=== PATIENT | female | born 1945 | race Two or more races ===

== ENCOUNTER 2018-05-19 12:10 | Emergency (ER) | payer MEDICARE, SELFPAY ==
[2018-05-19 12:11] VITALS: BP 132/67; PULSE 63; RESP 18; TEMP 36.6; O2SAT 98; BMI 17.9
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
== END 2018-05-19 13:14 | disposition home or self-care (01) ==
PROVIDERS: Emergency Provider Emergency Medicine
DX: S70.01XA Contusion of right hip, initial encounter (principal); V03.10XA Pedestrian on foot injured in collision with car, pick-up truck or van in traffic accident, initial encounter; Y93.89 Activity, other specified; Y92.410 Unspecified street and highway as the place of occurrence of the external cause; I25.10 Atherosclerotic heart disease of native coronary artery without angina pectoris; I10 Essential (primary) hypertension; E11.9 Type 2 diabetes mellitus without complications; Z79.84 Long term (current) use of oral hypoglycemic drugs; Z79.899 Other long term (current) drug therapy
CPT/HCPCS: 73502; 99282; J7030

== ENCOUNTER 2018-06-04 17:24 | Emergency (ER) | payer MEDICARE, SELFPAY ==
[2018-06-04 17:25] VITALS: BP 125/85; PULSE 83; RESP 14; TEMP 36.4; O2SAT 96; BMI 18.1
--- NOTE | 2018-06-04 17:55 | CT_ITS ---
STUDY: CT BRAIN WITHOUT CONTRAST REASON FOR EXAM: Female, 72 years old. Fall with head injury RADIATION DOSAGE (If Supplied By Facility): CTDIvol = ( 44.99 ) mGy, DLP = ( 1609.59 ) mGycm TECHNIQUE: Transaxial CT imaging of the brain was performed without administration of intravenous contrast material. Individualized dose optimization techniques were used for this CT. COMPARISON: None. FINDINGS: Normal soft tissue structures. Normal calvarium. There is mild cerebral atrophy with widening of the extra-axial spaces and ventricular dilatation. There are areas of decreased attenuation within the white matter tracts of the supratentorial brain, consistent with microvascular disease changes. Normal basal ganglia and thalami. Normal brainstem. There is mild cerebellar atrophy. There is no intracranial hemorrhage. There are no findings of an acute ischemic infarction. There is mucoperiosteal inflammatory disease of the paranasal sinuses consistent with mild chronic sinusitis. CT/Brain/Head without Contrast IMPRESSION: Chronic involutional changes of the brain. Electronically Signed: Jeff Genao DO at 18:31 EST Tel , Service support ,
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
--- NOTE | 2018-06-04 18:51 | ED.DEP ---
ED Disposition - Plan for ED Patient: Disposition: Home or Assisted Living Chief Complaint: Head Injury Instructions: ED Head Injury Closed Referrals: [facility],Out of [Primary Care Provider] - 1 Week
[2018-06-04 18:59] VITALS: BP 113/67; PULSE 54; RESP 16; O2SAT 99
== END 2018-06-04 19:00 | disposition home or self-care (01) ==
PROVIDERS: Emergency Provider Emergency Medicine
DX: S00.83XA Contusion of other part of head, initial encounter (principal); W18.39XA Other fall on same level, initial encounter; Y93.01 Activity, walking, marching and hiking; I25.10 Atherosclerotic heart disease of native coronary artery without angina pectoris; I10 Essential (primary) hypertension; E11.9 Type 2 diabetes mellitus without complications; Z79.84 Long term (current) use of oral hypoglycemic drugs; Z79.899 Other long term (current) drug therapy
CPT/HCPCS: 70450; 99282

== ENCOUNTER → 2018-10-19 11:43 | Outpatient (CLI) | payer MEDICARE, SELFPAY ==
[2018-10-19 11:30] VITALS: BMI 18.1
--- NOTE | 2018-10-19 11:45 | RAD_ITS ---
STUDY: X-RAY - RIGHT HAND REASON FOR EXAM: Pain and deformity of the fifth digit, fall. TECHNIQUE: 3 view(s) of the hand. COMPARISON: None. FINDINGS: There is osteopenia. Normal radiocarpal articulation. Normal distal radioulnar joint. Normal visualized carpal bones. Normal carpal articulations Normal carpometacarpal articulation of the thumb. Normal second through fifth carpometacarpal joints. Normal metacarpi. Normal metacarpophalangeal joint of the thumb. There is moderate joint space narrowing of the interphalangeal joint of the thumb. Normal proximal and distal phalanges of the thumb. Normal metacarpophalangeal joints of the second through fifth fingers. Normal proximal and distal interphalangeal joints of the second through fifth fingers. There is a mildly comminuted fracture of the proximal diametaphysis of the fifth proximal phalanx with dorsal angulation of the distal fragment. There is soft tissue swelling of the fifth digit. RAD/Hand Min 3 Views IMPRESSION: Fifth proximal phalangeal fracture. Electronically Signed: Devon Goss MD at 12:21 EDT Tel , Service support ,
== END ==
PROVIDERS: Referring Provider Physician Assistant; Visit Provider Physician Assistant
DX: S69.91XA Unspecified injury of right wrist, hand and finger(s), initial encounter (principal)
CPT/HCPCS: 73130

== ENCOUNTER 2018-10-19 13:02 | Inpatient (IN) | payer MEDICARE, SELFPAY ==
[2018-10-19] VITALS (9 sets, daily range): BP systolic 105–142; BP diastolic 63–81; PULSE 67–83; RESP 16–24; TEMP 36.7–36.8; O2SAT 98–100; BMI 18.1; BMI 18.2; BMI 17.9
--- NOTE | 2018-10-19 13:27 | EKG12_ITS ---
Test Reason : ADMISSION Blood Pressure : / mmHG Vent. Rate : 071 BPM Atrial Rate : 071 BPM P-R Int : 144 ms QRS Dur : 084 ms QT Int : 386 ms P-R-T Axes : 073 026 053 degrees QTc Int : 419 ms Normal sinus rhythm Normal ECG No previous ECGs available Confirmed by FRANCE NIELSON, MARK ([id number]), video editor CARMEN PATTERSON ([id number]) on 10/25/2018 12:08:23 PM Referred By: Charles Baker Confirmed By:MARK HOUGH MD
[2018-10-19] MEDS: 0.9% Normal Saline 1,000 ML 150 ML IV (13:56)
[2018-10-19 13:57] LABS: Absolute Lymphocyte Count 2.01 X10^3/ul (0.83-4.51); Absolute Neutrophil Count 5.2 X10^3/uL (2.0-7.7); Basophil# 0.02 X10^3/uL; Basophil% 0.3 % (0-1); Eosinophil# 0.04 X10^3/uL; Eosinophils% 0.5 % (0-5); Hematocrit 33.4 % (37-47); Hemoglobin 11.5 g/dl (12.0-15.0); Lymphocyte # 2.01 X10^3/ul (4.0); Lymphocyte % 25.2 % (19-41); Mean Corp Hgb Conc 34.4 g/gl (32-36); Mean Corpuscular Hgb 29.9 pg (27.0-32.0); Mean Platelet Vol. 8.8 fl (6.2-12.0); Monocyte# 0.71 X10^3/uL; Monocyte% 8.9 % (0-10); Neutrophil % 65.1 % (47-70); Platelet Count 276 K/mm3 (150-450); RBC Distribution Width CV 13.6 % (11.6-14.6); RBC Distribution Width SD 43.8 fl (35.1-43.9); Red Blood Count 3.84 M/mm3 (4.2-5.4)
[2018-10-19 13:58] LABS: POSITIVE COUNT NO; POSITIVE DIFFERENTIAL NO; POSITIVE MORPHOLOGY NO
[2018-10-19 14:13] LABS: Anion Gap 4 (5-15); BUN 10 mg/dL (7-18); BUN/Creat Ratio 17.9 RATIO (10-20); Calcium,Total 8.9 mg/dL (8.5-10.1); Chloride 103 mmol/L (98-107); Creatinine, Serum 0.56 mg/dL (0.55-1.02); EST Glomerular Filtration Rate 113 mL/min (>60); Est Glom Filt Rate - Afr Amer 137 mL/min (>60); Estimated Creatinine Clearance 35.08 ml/min; Glucose 94 mg/dL (74-106); Potassium 3.8 mmol/L (3.5-5.1); Sodium Level 134 mmol/L (136-145)
[2018-10-19] MEDS: Aspirin 81 MG TAB.CHEW 324 MG PO (15:10)
--- NOTE | 2018-10-19 15:20 | RAD_ITS ---
STUDY: X-RAY CHEST REASON FOR EXAM: Female, 73 years old. Abnormal EKG. TECHNIQUE: Single AP portable view of the chest. COMPARISON: None. FINDINGS: EKG electrodes are seen. Hyperinflation. The lungs are clear. There is no demonstrated pleural abnormality. Normal size heart. Normal mediastinum and dmitriy. Normal visualized pulmonary arteries. There is atherosclerotic calcification of the aortic arch with tortuosity. Normal visualized thoracic spine. Normal visualized ribs, clavicles, and shoulders. There is no demonstrated abnormality of the visualized soft tissue structures of the upper abdomen. RAD/Chest 1 View (Portable) IMPRESSION: Hyperinflation. The lungs are clear. Electronically Signed: Srinivasa Reddy, at 15:39 EDT , Service support ,
--- NOTE | 2018-10-19 16:25 | ED.VISSUMM ---
- ER Visit Summary Date of Service: 10/19/18 Chief Complaint: Fall History of Present Illness: The patient is a 73 F who sent to the ER from the [facility] clinic after falling. She states she tripped and fell. She has a right fifth finger fracture. She reported was sent to the ER to check out my heart. Patient is on metoprolol regularly. She denies chest pain or palpitations. She states she catches her toe and falls fairly frequently. She was seen here in May for a fall also. Patient lives in [place] but is here visiting her mother. 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 Her last cardiac cath was 2 years ago and did not show any lesions that would require stenting. Physical Examination: Vital signs unremarkable. Patient sitting upright in bed no acute distress. Head neck examination was an abrasion to the right lateral eyebrow. C-spine is nontender. Heart is irregular. Lung sounds are clear. Abdomen is soft nontender. Right upper extremity reveals right fifth finger to be in a splint. She has abrasions noted to her left palm. Test Results: EKG is sinus at 70 with frequent PACs. On review of cloud automation tester she is in a trigeminy type pattern with 2 sinus beats followed by a PAC. CBC was normal white count hemoglobin 11.5. Chemistry studies normal. Troponin is elevated at 0.088. Portable chest x-ray shows hyperinflation. Lungs are clear. Emergency Department Course and Treatment: Patient was given IV fluids. Following laboratory results she was given p.o. aspirin. As advised by nursing staff that the splint was applied to her hand at urgent care was only a temporary measure and we needed to redo it here. I pulled [facility] and her finger is angulated. Digital block is performed. Right fifth finger is reduced and placed in AlumaFoam splint. I discussed with patient need for hospitalization and cycling of cardiac enzymes and monitoring for any cardiac arrhythmias. At this time she is declining but is in agreement to stay for a 3-hour repeat EKG and troponin. Depending on those results she will consider staying in the hospital. Is to be signed out to oncoming physician. Treatment Plan: [] Disposition: Pending repeat labs Impression: 1. Right fifth finger fracture, reduced 2. Elevated troponin 3. Fall This note was generated with [employer] software. It may contain incorrect words, spelling, and punctuation that were not noted in review of the chart prior to signing ED Disposition - Plan for ED Patient: Referrals: [facility],Out of [Primary Care Provider] -
--- NOTE | 2018-10-19 16:29 | ED.DCSUM_ITS ---
- ER Visit Summary Date of Service: 10/19/18 Chief Complaint: Fall History of Present Illness: The patient is a 73 F who sent to the ER from [facility]. She states she tripped and fell. She has a right fifth finger fracture. She reported was sent to the ER to check out my heart. Patient is on metoprolol regularly. She denies chest pain or palpitations. She states she catches her toe and falls fairly frequently. She was seen here in May for a fall also. Patient lives in [place] but is here visiting her mother. 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 Her last cardiac cath was 2 years ago and did not show any lesions that would require stenting. Physical Examination: Vital signs unremarkable. Patient sitting upright in bed no acute distress. Head neck examination was an abrasion to the right lateral eyebrow. C-spine is nontender. Heart is irregular. Lung sounds are clear. Abdomen is soft nontender. Right upper extremity reveals right fifth finger to be in a splint. She has abrasions noted to her left palm. Test Results: EKG is sinus at 70 with frequent PACs. On review of pile driver operator helper she is in a trigeminy type pattern with 2 sinus beats followed by a PAC. CBC was normal white count hemoglobin 11.5. Chemistry studies normal. Troponin is elevated at 0.088. Portable chest x-ray shows hyperinflation. Lungs are clear. Emergency Department Course and Treatment: Patient was given IV fluids. Following laboratory results she was given p.o. aspirin. As advised by nursing staff that the splint was applied to her hand at urgent care was only a t emporary measure and we needed to redo it here. I pulled up [facility] and her finger is angulated. Digital block is performed. Right fifth finger is reduced and placed in AlumaFoam splint. I discussed with patient need for hospitalization and cycling of cardiac enzymes and monitoring for any cardiac arrhythmias. At this time she is declining but is in agreement to stay for a 3-hour repeat EKG and troponin. Depending on those results she will consider staying in the hospital. Is to be signed out to oncoming physician. Treatment Plan: [] Disposition: Pending repeat labs Impression: 1. Right fifth finger fracture, reduced 2. Elevated troponin 3. Fall This note was generated with Dragon dictation software. It may contain incorrect words, spelling, and punctuation that were not noted in review of the chart prior to signing ED Disposition - Plan for ED Patient: Referrals: [facility] Doctor,Out of [Primary Care Provider] -
--- NOTE | 2018-10-19 16:30 | RAD_ITS ---
STUDY: X-RAY - RIGHT HAND, ATTENTION FIFTH FINGER REASON FOR EXAM: Female, 73 years old. Post reduction fracture TECHNIQUE: 3 view(s) of the finger were obtained. COMPARISON: Prior study of October 19, 2018 FINDINGS: There is again demonstrated a comminuted fracture of the base and proximal shaft of the fifth proximal phalanx. There remains moderately severe angulation deformity at the fracture site with the fracture apex directed anteriorly. The degree of angulation deformity appears similar to the prereduction images. RAD/Finger(s) Min 2 Views IMPRESSION: Comminuted fracture of the base/proximal shaft of the fifth proximal phalanx, appearing fairly similar in alignment to the prereduction images. Electronically Signed: Augustus Rosa MD at 16:45 EDT , Service support ,
--- NOTE | 2018-10-19 17:00 | EKG12_ITS ---
Test Reason : REPEAT Blood Pressure : / mmHG Vent. Rate : 069 BPM Atrial Rate : 069 BPM P-R Int : 144 ms QRS Dur : 074 ms QT Int : 390 ms P-R-T Axes : 056 029 049 degrees QTc Int : 417 ms Sinus rhythm with Premature atrial complexes Otherwise normal ECG Confirmed by JO ANN LEHMAN ([id number]), editorial specialist AYLA MORA ([id number]) on 10/26/2018 8:48:39 AM Referred By: Charles Baker Confirmed By:JO ANN LEHMAN
--- NOTE | 2018-10-19 18:57 | PCM.HP.STD ---
Problem List (1) Closed fracture of proximal phalanx of right hand Status: Acute (2) Contusion of left hand Status: Acute (3) Contusion of face Status: Acute (4) PAC (premature atrial contraction) Status: Acute (5) DM type 2 (diabetes mellitus, type 2) Status: Chronic (6) HTN (hypertension) Status: Chronic (7) CAD (coronary artery disease) Status: Chronic (8) Chronic iron deficiency anemia Status: Chronic History of Present Illness Date of Admission: 10/19/18 Chief Complaint: Recurrent fall and arrhythmia The patient is a 73 year old F with history of mild coronary artery, diabetes mellitus type 2 and hypertension but no PCI was sent to ER from [facility] after she had a fall and found arrhythmia. Patient has history of frequent fall, about 3 times in last 3 months without dizziness, altered mental status, confusion or palpitation. She suddenly feels her legs could not hold up and fall. She denies syncope or loss of consciousness. In ED, x-ray was done. she was found to have committed fracture of base/proximal shaft of the fifth proximal phalanx. She had a splint put in right fifth finger. She also has bruise on the right periorbital region and right knee secondary to fall. Patient is from [place] and visiting her family here. She follows to Stevan Mata, phone no [phone] at [place], [place]. Patient had a stress test every 2 or 3 years since 2003 and 2 cardiac cath one in 2003 and then 2017 and was told mild coronary artery disease, diffuse in nature but did not require PCI. She has never been diagnosed with arrhythmia or told by the doctor. In ER, EKG shows normal sinus rhythm with PACs and compensatory pause. Serial troponin done here is mildly elevated at 0.088 and 0.111. Chest x-ray shows hyperinflation. Past Medical History Past Medical History (Chronic Problems): Chronic Problems (Last Updated 10/19/18 @ 11:29 by Sheila Marcano) DM type 2 (diabetes mellitus, type 2) (Chronic) HTN (hypertension) (Chronic) CAD (coronary artery disease) (Chronic) Chronic iron deficiency anemia (Chronic) Medical History: Medical History (Last Updated 10/19/18 @ 11:29 by Sheila Marcano) Anemia D64.9 Diabetes E11.9 Difficulty balancing R29.818 GERD (gastroesophageal reflux disease) K21.9 Hay fever J30.1 Heart disease I51.9 SOB (shortness of breath) R06.02 Thyroid disease E07.9 HTN (hypertension) I10 Allergies Penicillins Allergy (Verified 10/19/18 13:06) Unknown Sulfa (Sulfonamide Antibiotics) Allergy (Verified 10/19/18 13:06) Unknown Home Medications: Ambulatory Orders Medication Instructions Recorded Lisinopril [Zestril] 2.5 mg PO DAILY 06/04/18 Metformin(XR) [Glucophage Xr] 1,000 mg PO BID 06/04/18 Atorvastatin Calcium [Lipitor] 10 mg PO DAILY 10/19/18 Ezetimibe [Zetia] 10 mg PO DAILY 10/19/18 levothyroxine 75 mcg tablet 75 mcg PO DAILY 10/19/18 metoprolol succinate ER 25 mg 25 mg PO DAILY 90 Days #90 tab 10/19/18 tablet,extended release 24 hr Smoking Status: Never smoker Tobacco Use: Non-smoker - *Family History Maternal Family History: Family History (Last Updated 10/19/18 @ 11:30 by Sheila Marcano) Other CAD (coronary artery disease) GERD (gastroesophageal reflux disease) Hypertension History Items: Heart Disease - Coronary artery disease with stent Review of Systems Constitutional: Denies: Chills, Fever, Weight Change HEENT: Denies: Head Aches, Sinus Congestion, Sinus Drainage Cardiovascular: Denies: Chest Pain, Palpitations Respiratory: Denies: Cough, Shortness of breath at rest, Sputum production Gastrointestinal: Denies: Abdominal Pain, Nausea, Vomiting Genitourinary: Denies: Dysuria Musculoskeletal: Reports: Foot Pain, Joint Pain. Denies: Joint Tenderness Skin: Denies: Rash, Wounds Neurological: Denies: Numbness, Tingling, Focal weakness Psychiatric: Denies: Anxiety, Depression, Homicidal Ideations, Suicidal Ideations Hematologic/ Lymphatic: Denies: Easy Bruising, Easy Bleeding VTE Information - Inpt Only VTE Present on Admission: No VTE Mechan Device Prophylaxis: None VTE Pharm Prophylaxis ordered?: Yes - Physical Exam General: Alert, Oriented x3, Cooperative HEENT: Atraumatic, PERRLA, EOMI, Normocephalic Neck: Supple, No JVD, Negative Carotid Bruits Lungs: Clear to auscultation, Normal air movement, No rhonchi, No wheeze, No rales Cardiovascular: Regular rate, Normal S1, Normal S2, No murmurs, Irregular Rate Abdomen: Bowel Sounds Present, Soft, Non Tender, Non-Distended Extremities: No edema, Capillary Refill Less than 3 Seconds Skin: No rashes, No breakdown Musculoskeletal: No Tenderness to Palpation of Joints or Extremities, Arthritic Changes, Tenderness - Tenderness over right fifth Neurological: Cranial nerves II-XII grossly intact Psych/Mental Status: Normal Affect, Appropriate Vital Signs Temp Pulse Resp BP Pulse Ox 98.3 F 68 18 142/81 H 100 10/19/18 13:02 10/19/18 17:58 10/19/18 17:58 10/19/18 17:58 10/19/18 17:58 Oxygen Delivery Method Room Air Weight: 96 lb 5.472 oz Body Mass Index (BMI) 18.1 Laboratory Tests Past 24 Hrs 10/19/18 10/19/18 10/19/18 13:49 13:49 17:15 WBC 8.0 RBC 3.84 L Hgb 11.5 L Hct 33.4 L MCV 87.0 MCH 29.9 MCHC 34.4 RDW 13.6 RDW Differential 43.8 Plt Count 276 MPV 8.8 Immature Gran % (Auto) 0.000 Neut % (Auto) 65.1 Lymph % (Auto) 25.2 Hemphill % (Auto) 8.9 Eos % (Auto) 0.5 Baso % (Auto) 0.3 Absolute Neuts (auto) 5.2 Absolute Lymphs (auto) 2.01 Total Counted Not Reportable Sodium 134 L Potassium 3.8 Chloride 103 Carbon Dioxide 27.0 Anion Gap 4 L BUN 10 Creatinine 0.56 Estim Creat Clear Calc 35.08 Est GFR (MDRD) Af Amer 137 Est GFR (MDRD) Non-Af 113 BUN/Creatinine Ratio 17.9 Glucose 94 Calcium 8.9 Troponin I 0.088 H 0.111 H Assessment/Plan All Active Problems (Last Updated 10/19/18 @ 11:29 by Sheila Marcano) Closed fracture of proximal phalanx of right hand (Acute) Contusion of left hand (Acute) Contusion of face (Acute) PAC (premature atrial contraction) (Acute) The patient is a 73 year old F with history of mild coronary artery, diabetes mellitus type 2 and hypertension but no PCI was sent to ER from [facility] after she had a fall and found arrhythmia. Patient has history of frequent fall, about 3 times in last 3 months without dizziness, altered mental status, confusion or palpitation. She suddenly feels her legs could not hold up and fall. She denies syncope or loss of consciousness. In ED, x-ray was done. she was found to have committed fracture of base/proximal shaft of the fifth proximal phalanx. She had a splint put in right fifth finger. She also has bruise on the right periorbital region and right knee secondary to fall. Patient is from [place] and visiting her family here. She follows to Stevan Mata, phone no [phone] at [place], [place]. Patient had a stress test every 2 or 3 years since 2003 and 2 cardiac cath one in 2003 and then 2017 and was told mild coronary artery disease, diffuse in nature but did not require PCI. She has never been diagnosed with arrhythmia or told by the doctor. In ER, EKG shows normal sinus rhythm with PACs and compensatory pause. Serial troponin done here is mildly elevated at 0.088 and 0.111. Chest x-ray shows hyperinflation. 1. Recurrent fall with arrhythmia: The arrhythmia is new onset with PACs and compensatory pause. Patient is being admitted in PCU. Serial troponin enzymes. 2D echo tomorrow morning. We will try to get medical record from Dr. Stevan Mata her offset lithographic press setter. Fruit Grading Supervisor consult for further opinion. Patient might need event monitor for further evaluation of arrhythmia which might be related to fall. She denies any history of severe arthritis, musculoskeletal problems leading to fall. Check electrolytes magnesium. 2. Right fifth finger proximal shaft corrected fracture: We will consult orthopedic surgeon. Motrin small dose 400 mg every 8 hourly for anti-inflammatory effect. Pain control. 3. Coronary artery disease with elevated troponins: Cycle troponins. Home medications continued including lisinopril, metoprolol and aspirin. Patient does not have chest pain. Seems her troponin leaks may be related to arrhythmia or fall. She had multiple stress and cardiac cath in [place]. 4. Diabetes mellitus type 2: Blood sugar is well controlled, glucose 94 in BMP. Hold metformin. Accu-Cheks are seen just cover with Humalog sliding scale. 5. Hypertension: Blood pressure is controlled. Continue lisinopril. 6. Other comorbidities include GERD, mild chronic iron deficiency anemia: Patient last hemoglobin was 12 g% as an outpatient. Currently 11.5/33 2.4. 7. DVT plexus: Lovenox 40 minutes subcu daily. Laboratory Results 10/19/18 13:49: WBC 8.0, RBC 3.84 L, Hgb 11.5 L, Hct 33.4 L, MCV 87.0, MCH 29.9, MCHC 34.4, RDW 13.6, RDW Differential 43.8, Plt Count 276, MPV 8.8, Immature Gran % (Auto) 0.000, Neut % (Auto) 65.1, Lymph % (Auto) 25.2, Hemphill % (Auto) 8.9, Eos % (Auto) 0.5, Baso % (Auto) 0.3, Absolute Neuts (auto) 5.2, Absolute Lymphs (auto) 2.01, Total Counted Not Reportable 10/19/18 13:49: Sodium 134 L, Potassium 3.8, Chloride 103, Carbon Dioxide 27.0, Anion Gap 4 L, BUN 10, Creatinine 0.56, Estim Creat Clear Calc 35.08, Est GFR (MDRD) Af Amer 137, Est GFR (MDRD) Non-Af 113, BUN/Creatinine Ratio 17.9, Glucose 94, Calcium 8.9, Troponin I 0.088 H 10/19/18 17:15: Troponin I 0.111 H 10/19/18 17:15: Magnesium Pending 10/19/18 17:15: Magnesium Pending Clinical Impression(s) from Imaging Studies Chest X-Ray 10/19/18 15:20 IMPRESSION: Hyperinflation. The lungs are clear. Finger X-Ray 10/19/18 16:30 IMPRESSION: Comminuted fracture of the base/proximal shaft of the fifth proximal phalanx, appearing fairly similar in alignment to the prereduction images. Code Visit OBSV E&M: [id number] Initial observation care L3
--- NOTE | 2018-10-19 19:08 | EKG12_ITS ---
Test Reason : FALL Blood Pressure : / mmHG Vent. Rate : 070 BPM Atrial Rate : 070 BPM P-R Int : 132 ms QRS Dur : 076 ms QT Int : 384 ms P-R-T Axes : 062 036 058 degrees QTc Int : 414 ms Sinus rhythm with Premature atrial complexes Otherwise normal ECG Confirmed by JO ANN LEHMAN ([id number]), editor continuity and script AYLA MORA ([id number]) on 10/26/2018 8:49:28 AM Referred By: Charles Baker Confirmed By:JO ANN LEHMAN
[2018-10-19 19:21] LABS: Magnesium 1.7 mg/dL (1.6-2.6)
[2018-10-19 19:31] LABS: Bedside Glucose 92 mg/dL (70-110)
--- NOTE | 2018-10-19 19:36 | CT_ITS ---
STUDY: CT LUMBAR SPINE WITHOUT CONTRAST REASON FOR EXAM: Female, 73 years old. RIGHT leg pain RADIATION DOSAGE (If Supplied By Facility): CTDIvol = ( 10.07 ) mGy, DLP = ( 274.91 ) mGycm TECHNIQUE: The patient was scanned in a multi detector CT scanner. High resolution transaxial imaging was performed. Images were obtained from to . Sagittal and coronal images were reconstructed. Individualized dose optimization techniques were used for this CT. COMPARISON: None FINDINGS: Normal lumbar lordosis. There is no substantial scoliosis. Normal vertebrae of the lumbar spine. L1-2: Normal endplates. Normal disc height and morphology. Normal bilateral facet joints. Normal central canal and bilateral lateral recesses. Normal bilateral intervertebral neural foramina. L2-3: Normal endplates. Normal disc height and morphology. Normal bilateral facet joints. Normal central canal and bilateral lateral recesses. Normal bilateral intervertebral neural foramina. L3-4: Normal endplates. Normal disc height and morphology. Normal bilateral facet joints. Normal central canal and bilateral lateral recesses. Normal bilateral intervertebral neural foramina. L4-5: Normal endplates. There is mild loss of disc height. There is broad-based disc bulging and bilateral facet hypertrophy. There is mild thickening of the ligamentum flavum. There is mild spinal stenosis and bilateral foraminal stenosis. L5-S1: Normal endplates. Normal disc height and morphology. Normal bilateral facet joints. Normal central canal and bilateral lateral recesses. Normal bilateral intervertebral neural foramina. Normal visualized paraspinous soft tissue structures. CT/Spine Lumbar without Contrast IMPRESSION: There are NO fractures or malalignments. There are degenerative disc and facet changes causing spinal and foraminal stenosis as described at L4-L5. Electronically Signed: Milo Hdez MD at 5:04 EDT , Service support ,
[2018-10-19] MEDS: Ibuprofen 400 MG Tablet PO (21:16)
[2018-10-19] MEDS: Enoxaparin 40 MG/0.4 ML Syringe SC (22:32)
[2018-10-19] MEDS: 0.9% Normal Saline 1,000 ML 100 ML IV (22:42)
[2018-10-19 23:41] LABS: Bedside Glucose 98 mg/dL (70-110)
[2018-10-20] VITALS (11 sets, daily range): BP systolic 83–134; BP diastolic 52–72; PULSE 58–77; RESP 15–18; TEMP 36.4–36.8; O2SAT 97–100
--- NOTE | 2018-10-20 05:55 | ECHOCS_ITS ---
Reason For Study: Fall with arrhythmia Procedure This was a 2D Doppler, Color Flow transthoracic echocardiogram. The study was technically difficult. Contrast injection was performed. Exam performed in department. Left Ventricle Normal size and thickness. The estimated ejection fraction is 65 %. Stage 1 diastolic dysfunction. No regional wall motion abnormalities noted. Right Ventricle Normal size and thickness. Normal systolic function. Atria Normal left atrium. Normal right atrium. Normal atrial septum. Bubble contrast study negative for right to left interatrial shunt. Mitral Valve The mitral valve is structurally normal. No prolapse or stenosis seen. Tricuspid Valve Normal tricuspid valve. Trivial tricuspid valve insufficiency. Right ventricular systolic pressure estimated to be 33 mmHg. Aortic Valve Trisinus/trileaflet aortic valve. Mild diffuse aortic valve thickening. Trivial aortic valve insufficiency. Pulmonic Valve Normal pulmonic valve. Great Vessels Normal aortic root. Normal arch. Normal inferior vena cava. Inferior vena cava collapse with sniff. Pericardium/Pleural No pericardial effusion. Medication Diluted definity 1ml given slow IV push to enhance endocardial definition. Performed a rapid injection of agitated mix of 9 cc saline and 1cc air to assess for atrial septal defect. MMode/2D Measurements & Calculations LVIDd: 3.2 cm IVSd: 1.0 cm LA dimension: 2.7 cm LVIDs: 1.9 cm LVPWd: 1.1 cm RVDd: 2.5 cm FS: 42.3 % LAV(MOD-bp): 28.1 ml LA A4 area: 12.9 cm2 RA A4 area: 10.7 cm2 LAV(MOD-bp) Indexed: 20.4 ml/m2 LAV(MOD-sp2): 28.0 ml LAV(MOD-sp4): 27.6 ml Time Measurements MV dec time: 0.21 sec Doppler Measurements & Calculations MV E max abdelrahman: 83.7 cm/sec Lat Peak E' Abdelrahman: 6.6 cm/sec Med Peak E' Abdelrahman: 8.3 cm/sec MV A max abdelrahman: 93.2 cm/sec E/E' lat: 12.7 E/E' med: 10.1 MV E/A: 0.90 MV V2 max: 97.4 cm/sec MV P1/2t max abdelrahman: 86.8 cm/sec Ao V2 max: 143.5 cm/sec MV max P.8 mmHg MV P1/2t: 64.1 msec Ao max P.2 mmHg MV V2 mean: 56.1 cm/sec MV dec slope: 396.9 cm/sec2 Ao V2 mean: 89.9 cm/sec MV mean P.5 mmHg Ao mean P.8 mmHg MV V2 VTI: 26.1 cm MVA(P1/2t): 3.4 cm2 Ao V2 VTI: 25.0 cm AI max abdelrahman: 382.8 cm/sec LV V1 max: 109.1 cm/sec PA V2 max: 95.3 cm/sec AI max P.6 mmHg LV V1 max P.8 mmHg AI dec slope: 189.4 cm/sec2 LV V1 mean P.7 mmHg AI P1/2t: 592.0 msec LV V1 mean: 59.1 cm/sec LV V1 VTI: 21.7 cm TR max abdelrahman: 263.6 cm/sec TR max P.8 mmHg Interpretation Summary The estimated ejection fraction is 65 %. Stage 1 diastolic dysfunction. Bubble contrast study negative for right to left interatrial shunt. Right ventricular systolic pressure estimated to be 33 mmHg. Trivial tricuspid valve insufficiency. Trivial aortic valve insufficiency. The study was technically difficult. Contrast injection was performed. Ordering Physician: Jermaine Mitchell Performed By: Chilo Fitzgerald RCS
--- NOTE | 2018-10-20 05:55 | EKG12_ITS ---
Test Reason : AM EKG Blood Pressure : / mmHG Vent. Rate : 068 BPM Atrial Rate : 068 BPM P-R Int : 158 ms QRS Dur : 080 ms QT Int : 430 ms P-R-T Axes : 070 016 040 degrees QTc Int : 457 ms Normal sinus rhythm Normal ECG When compared with ECG of 19-OCT-2018 21:01, MANUAL COMPARISON REQUIRED, DATA IS UNCONFIRMED Confirmed by FRANCE NIELSON, MARK ([id number]), book editor CARMEN PATTERSON ([id number]) on 10/25/2018 12:07:10 PM Referred By: DR KEE Confirmed By:MARK HOUGH MD
--- NOTE | 2018-10-20 05:55 | STEWCON_ITS ---
Reason For Study: DYSPNEA/SOB Stress Results Protocol: Jovanni Protocol WITH DEFINITY Maximum Predicted HR: 148 bpm Target HR: 126 bpm % Maximum Predicted HR: 90 % DurationHeart Rate Stage (mm:ss) (bpm) BP Comment BASELINE 65 108/561CC DEFINITY STAGE 1 3:00 101 120/52 STAGE 2 3:00 114 122/52 STAGE 3 3:00 133 120/501 CC DEFINITY RECOVERY 81 110/60 Stress Duration: 9:00 mm:ss Maximum Stress HR: 133 bpm Baseline Echocardiogram Findings The estimated ejection fraction is 65 %. Stress Echo Wall motion Data Resting WM Intermediate WM Stress WM Resting Wall Motion Wall Motion Stress No regional wall motion No regional wall motion abnormalities noted. abnormalities noted. EKG Data The baseline ECG displays normal sinus rhythm. The patient exercised according to the regular Jovanni protocol for a total duration of 9:00. The maximum heart rate attained was 139 beats per minute. This was 93% of maximum predicted heart rate. The patient exercised into stage 4 of the Jovanni protocol. During stress, there were no ST or T wave changes noted to suggest ischemia. No clinical angina was noted. No arrhythmias noted. Interpretation Summary The estimated ejection fraction is 65 %. Normal, adequate, treadmill echocardiogram. Negative for ischemia by EKG and echocardiographic criteria. No anginal symptoms noted. No arrhythmias noted. Appropriate heart rate and blood pressure response to exercise. Excellent chronotropic competence. Decreased sensitivity due to poor echo windows requiring Definity enhancing agent. Final LVEF is 75%. Test terminated due to the attainment target heart rate and dyspnea. No complications. The study was technically difficult. Contrast injection was performed. Ordering Physician: Jermaine Mitchell Performed By: Chilo Fitzgerald RCS
[2018-10-20] MEDS: Aspirin E.C. 81 MG Tablet PO (06:03)
[2018-10-20] MEDS: Lisinopril 2.5 MG Tablet PO (06:07)
[2018-10-20 06:35] LABS: Hematocrit 33.5 % (37-47); Hemoglobin 11.4 g/dl (12.0-15.0); Mean Corpuscular Hgb 29.6 pg (27.0-32.0); Mean Platelet Vol. 9.2 fl (6.2-12.0); Platelet Count 277 K/mm3 (150-450); RBC Distribution Width CV 13.4 % (11.6-14.6); RBC Distribution Width SD 41.4 fl (35.1-43.9); Red Blood Count 3.85 M/mm3 (4.2-5.4); White Blood Count 6.2 K/mm3 (4.4-11.0)
[2018-10-20 06:36] LABS: Scan Indicated on CBC? Y/N NO
[2018-10-20 06:39] LABS: Prothrombin Time (Protime)PT. 13.2 SECONDS (11.7-14.9)
[2018-10-20 06:40] LABS: Partial Thromboplast Time 36.6 Seconds (24.1-36.2)
[2018-10-20 07:19] LABS: Anion Gap 7 (5-15); BUN 13 mg/dL (7-18); BUN/Creat Ratio 27.7 RATIO (10-20); Calcium,Total 8.4 mg/dL (8.5-10.1); Chloride 109 mmol/L (98-107); Cholesterol 139 mg/dL (200); Creatinine, Serum 0.47 mg/dL (0.55-1.02); EST Glomerular Filtration Rate 138 mL/min (>60); Est Glom Filt Rate - Afr Amer 167 mL/min (>60); Estimated Creatinine Clearance 34.63 ml/min; Glucose 88 mg/dL (74-106); High Density Lipoprotein 91 mg/dL; Phosphorus 4.3 mg/dL (2.5-4.9); Potassium 3.9 mmol/L (3.5-5.1); Sodium Level 140 mmol/L (136-145); T4 Free Direct 1.35 ng/dL (0.76-1.46); Thyroid Stim Hormone (TSH) 0.31 uIU/mL (0.358-3.74); Triglycerides 60 mg/dL; Very Low Density Lipoprotein 12 mg/dL (5-40)
[2018-10-20 07:21] LABS: Bedside Glucose 87 mg/dL (70-110)
--- NOTE | 2018-10-20 09:31 | PCM.PN.ORT ---
Subjective: Patient at cardiac testing right now. - Physical Exam Vital Signs Temp Pulse Resp BP Pulse Ox 97.7 F L 63 16 115/59 L 100 10/20/18 08:00 10/20/18 08:00 10/20/18 08:00 10/20/18 08:00 10/20/18 08:00 Oxygen Delivery Method Room Air Weight: 95 lb 1.6 oz Body Mass Index (BMI) 17.9 Orthostatic Vital Signs Start: 10/19/18 20:20 Freq: q24h Status: Active Protocol: Activity Type Activity Date Activity User E-Sign Co-Sign Detail Recorded Client Recorded Date Recorded By Document 10/19/18 20:00 ZACHARIAH [id number] 10/19/18 20:21 ZACHARIAH 10/19/18 20:00 Orthostatic Vitals Standing -Blood Pressure (90/60-120/80) 105/66 -Extremity Use Left Arm -Pulse Rate (60-100) 83 Sitting -Blood Pressure (90/60-120/80) 114/71 -Extremity Use Left Arm -Pulse Rate (60-100) 75 Lying -Blood Pressure (90/60-120/80) 111/63 -Extremity Use Left Arm -Pulse Rate (60-100) 76 Intake and Output for Last 24 Hours 10/18/18 10/19/18 10/20/18 23:59 23:59 23:59 Intake Total 877 / 877 Balance 877 / 877 Laboratory Tests Past 24 Hrs 10/19/18 10/19/18 10/19/18 13:49 13:49 17:15 WBC 8.0 RBC 3.84 L Hgb 11.5 L Hct 33.4 L MCV 87.0 MCH 29.9 MCHC 34.4 RDW 13.6 RDW Differential 43.8 Plt Count 276 MPV 8.8 Immature Gran % (Auto) 0.000 Neut % (Auto) 65.1 Lymph % (Auto) 25.2 Wilkinson % (Auto) 8.9 Eos % (Auto) 0.5 Baso % (Auto) 0.3 Absolute Neuts (auto) 5.2 Absolute Lymphs (auto) 2.01 Total Counted Not Reportable PT INR APTT Sodium 134 L Potassium 3.8 Chloride 103 Carbon Dioxide 27.0 Anion Gap 4 L BUN 10 Creatinine 0.56 Estim Creat Clear Calc 35.08 Est GFR (MDRD) Af Amer 137 Est GFR (MDRD) Non-Af 113 BUN/Creatinine Ratio 17.9 Glucose 94 Calcium 8.9 Phosphorus Magnesium Troponin I 0.088 H 0.111 H Triglycerides Cholesterol LDL Cholesterol VLDL Cholesterol HDL Cholesterol TSH Free T4 10/19/18 10/19/18 10/19/18 17:15 17:15 20:50 WBC RBC Hgb Hct MCV MCH MCHC RDW RDW Differential Plt Count MPV Immature Gran % (Auto) Neut % (Auto) Lymph % (Auto) Wilkinson % (Auto) Eos % (Auto) Baso % (Auto) Absolute Neuts (auto) Absolute Lymphs (auto) Total Counted PT INR APTT Sodium Potassium Chloride Carbon Dioxide Anion Gap BUN Creatinine Estim Creat Clear Calc Est GFR (MDRD) Af Amer Est GFR (MDRD) Non-Af BUN/Creatinine Ratio Glucose Calcium Phosphorus Magnesium Cancelled 1.7 Troponin I 0.093 H Triglycerides Cholesterol LDL Cholesterol VLDL Cholesterol HDL Cholesterol TSH Free T4 10/20/18 10/20/18 10/20/18 06:22 06:22 06:22 WBC 6.2 RBC 3.85 L Hgb 11.4 L Hct 33.5 L MCV 87.0 MCH 29.6 MCHC 34.0 RDW 13.4 RDW Differential 41.4 Plt Count 277 MPV 9.2 Immature Gran % (Auto) Neut % (Auto) Lymph % (Auto) Wilkinson % (Auto) Eos % (Auto) Baso % (Auto) Absolute Neuts (auto) Absolute Lymphs (auto) Total Counted PT 13.2 INR 1.0 APTT 36.6 H Sodium 140 Potassium 3.9 Chloride 109 H Carbon Dioxide 24.0 Anion Gap 7 BUN 13 Creatinine 0.47 L Estim Creat Clear Calc 34.63 Est GFR (MDRD) Af Amer 167 Est GFR (MDRD) Non-Af 138 BUN/Creatinine Ratio 27.7 H Glucose 88 Calcium 8.4 L Phosphorus 4.3 Magnesium Troponin I Triglycerides 60 Cholesterol 139 LDL Cholesterol 36 VLDL Cholesterol 12 HDL Cholesterol 91 TSH 0.31 L Free T4 1.35 POC Glucose 10/20/18 10/19/18 10/19/18 06:21 22:31 19:24 POC Glucose 87 98 92 Medical Necessity - Tobacco Use Smoking Status: Never smoker Tobacco Use: Non-smoker Assessment/Plan All Active Problems (Last Updated 10/19/18 @ 11:29 by Sheila Marcano) Closed fracture of proximal phalanx of right hand (Acute) Contusion of left hand (Acute) Contusion of face (Acute) PAC (premature atrial contraction) (Acute) Right small finger angulated fracture-- Patient may need reduction and fixation in future as long as cardiac status allows it. I reviewed the xrays and discussed the case with Dr. Corea and will follow as outpatient,
--- NOTE | 2018-10-20 10:20 | CASEMGMT ---
LUC HAILE assessment: Face to Face with patient for initial transition planning/care coordination assessment. LUC HAILE introduced self and role at [facility], pt voices understanding and consents to assessment at this time. Pt is sitting up in chair in no distress at this time. Pt is A/Ox4 at this time and answers all questions appropriately at this time. Pt states this is the 3rd time she has fallen without tripping and states some concerns regarding same. Pt states that she did inform her PCP in [place]. Halie CAR UNLOADER is aware at this time of pt concern, voices understanding. Care providers, pharmacy, and demographics verified at this time. PCP: Kassie in [place] Specialists: Financial Legal Assistant in [place] Preferred Pharmacy: [facility] Insurance: [facility] Prescription Benefit: [facility] Living Will/HPOA: Pt states does not have LW/HPOA and declines info at this time as she is not from [place] and paperwork may vary. LNOK: Kimberly Goldberg, Living Arrangements: Pt states lives with in 2 story home and states no concerns at home at this time. Transportation: Pt states drives self and states no transportation concerns at this time. DME/HHC: Pt states no current DME or need for any at this time. Pt states no hx of HHC or SNF in the past. Pt states no concerns with going home at time of discharge. Pt is retired. Pt states does not smoke but does drink occasionally. Pt states no further concerns/needs at this time. CM to follow for any further discharge planning/needs. Advised pt to ask for CM if any further discharge planning/needs arise, voices understanding. Pt Goal: [place]
--- NOTE | 2018-10-20 11:17 | MRI_ITS ---
STUDY: MRI BRAIN WITHOUT CONTRAST REASON FOR EXAM: Female, 73 years old. Recurrent falls TECHNIQUE: Standardized multiplanar fat and water weighted pulse sequences were obtained. COMPARISON: CT brain June 04, 2018 FINDINGS: Normal size of the ventricles and extra-axial spaces for the patient's age. Normal white matter tracts of the supratentorial brain. There is no evidence for recent intracranial ischemia or other cause of cytotoxic edema on diffusion weighted imaging (DWI). Normal bilateral basal ganglia. Normal thalami. There is no extra-axial fluid accumulation. Normal flow voids within the major intracranial circulation suggesting patency by spin echo criteria. Normal sella turcica, pituitary gland, infundibular stalk, optic chiasm and hypothalamus. Normal tectal plate and pineal gland. Normal midbrain, fran and medulla. Normal cerebellum. Normal basal cisterns. Normal bilateral temporal bones. Normal bilateral internal auditory canals. No demonstrated orbital abnormality, within the constraints of a routine brain study. Normal visualized paranasal sinuses. Normal calvarium and skull base. Normal visualized soft tissue structures. Normal visualized upper cervical spine. MRI/Brain without Contrast IMPRESSION: Normal unenhanced MRI of the brain. Electronically Signed: José Luis Verdin MD at 16:12 EDT , Service support ,
--- NOTE | 2018-10-20 11:17 | MRI_ITS ---
STUDY: MRA NECK WITHOUT CONTRAST REASON FOR EXAM: Female, 73 years old. Syncope TECHNIQUE: Source images were obtained, MIPs were performed. The study was performed unenhanced. COMPARISON: None. FINDINGS: RIGHT CAROTID ARTERIES: Normal right common carotid artery (CCA). Normal right common carotid bulb. Normal origin of the right internal carotid (ICA) artery without a hemodynamically significant stenosis. Normal visualized cervical portion of the right internal carotid artery. Normal origin of the right external carotid artery (ECA). LEFT CAROTID ARTERIES: Normal left common carotid artery (CCA). Normal left common carotid bulb. Normal origin of the left internal carotid (ICA) artery without a hemodynamically significant stenosis. Normal visualized cervical portion of the left internal carotid artery. Normal origin of the left external carotid artery (ECA). VERTEBRAL ARTERIES: Normal antegrade flow within the bilateral vertebral artery without a hemodynamically significant stenosis. MRI/MRA Neck without Contrast IMPRESSION: Normal bilateral cervical carotid and vertebral arteries. Electronically Signed: José Luis Verdin MD at 16:32 EDT , Service support ,
--- NOTE | 2018-10-20 11:17 | MRI_ITS ---
STUDY: MRA OF THE HEAD WITHOUT CONTRAST REASON FOR EXAM: Female, 73 years old. 3 falls since April TECHNIQUE: 3-D [id number] (TOF) imaging was performed with MIPs. The study was performed unenhanced. COMPARISON: MR brain October 20, 2018 FINDINGS: Normal bilateral petrous carotid arteries. Normal right cavernous carotid artery with a normal supraclinoid bifurcation. Normal left cavernous carotid artery with a normal supraclinoid bifurcation. Normal right A1 segments of the anterior cerebral artery. Normal left A1 segments of the anterior cerebral artery. Normal intact anterior communicating artery (ACOM). Normal bilateral A2 segments of the anterior cerebral arteries. Normal right M1 and M2 segments of the middle cerebral arteries, with a normal M1 bifurcation. Normal left M1 and M2 segments of the middle cerebral arteries, with a normal M1 bifurcation. There is non-visualization of the right posterior communicating artery (PCOM). There is non-visualization of the left posterior communicating artery (PCOM). Normal bilateral vertebral arteries. Normal basilar artery with a normal basilar bifurcation. The visualized bilateral superior cerebellar (SCA) arteries are normal. Normal bilateral P1, P2 and visualized P3 segments of the posterior cerebral arteries. There is no demonstrated aneurysm of the [place]. There is no major vessel occlusion or hemodynamically significant stenosis. There is no demonstrated abnormality of the visualized brain. MRI/MRA Head ONLY without Contrast IMPRESSION: Normal MRA of the head Electronically Signed: José Luis Verdin MD at 16:28 EDT , Service support ,
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
[2018-10-20] MEDS: Ezetimibe 10 MG Tablet PO (13:36)
[2018-10-20] MEDS: Famotidine 20 MG Tablet PO (13:36)
[2018-10-20] MEDS: Levothyroxine 75 MCG Tablet PO (13:36)
[2018-10-20 13:40] LABS: Bedside Glucose 78 mg/dL (70-110)
[2018-10-20] MEDS: Metoprolol Tartrate 25 MG Tablet 12.5 MG PO (13:50)
--- NOTE | 2018-10-20 13:51 | MRI_ITS ---
STUDY: MRI LUMBAR SPINE WITHOUT CONTRAST REASON FOR EXAM: Female, 73 years old. Frequent falls TECHNIQUE: Standardized fat and water weighted pulse sequences were obtained in the sagittal and axial planes. COMPARISON: CT lumbar spine October 19, 2018 FINDINGS: T12-L1: Normal endplates. Normal disc height, hydration and morphology. Normal bilateral facet joints. Normal central canal and bilateral lateral recesses. Normal bilateral intervertebral neural foramina. Normal lumbar lordosis. There is no substantial scoliosis. Normal conus medullaris that terminates at the L1 level. L1-2: Normal endplates. Normal disc height, hydration and morphology. Normal bilateral facet joints. Normal central canal and bilateral lateral recesses. Normal bilateral intervertebral neural foramina. L2-3: Normal endplates. Normal disc height, hydration and morphology. Normal bilateral facet joints. Normal central canal and bilateral lateral recesses. Normal bilateral intervertebral neural foramina. L3-4: Mild circumferential disc marginal osteophyte causing mild narrowing of the neural foramina bilaterally. L4-5: Moderate circumferential disc marginal osteophyte causing moderate narrowing of the neural foramina, left greater than right. Central thecal sac patent. L5-S1: Normal endplates. Normal disc height, hydration and morphology. Normal bilateral facet joints. Normal central canal and bilateral lateral recesses. Normal bilateral intervertebral neural foramina. Normal visualized sacral ala. Normal visualized paraspinous soft tissue structures. MRI/Spine Lumbar (Routine) IMPRESSION: Moderate broad-based bulge and neural foraminal narrowing at L4-5. Electronically Signed: José Luis Verdin MD at 16:37 EDT , Service support ,
--- NOTE | 2018-10-20 13:51 | MRI_ITS ---
STUDY: MRI CERVICAL SPINE WITHOUT CONTRAST REASON FOR EXAM: Female, 73 years old. Syncope TECHNIQUE: Standardized fat and water weighted pulse sequences were obtained in the sagittal and axial planes. COMPARISON: None FINDINGS: Normal foramen magnum and brainstem-cervical cord junction. Normal craniovertebral junction. Normal anterior atlantoaxial articulation. Normal odontoid process. There is reversal of the normal cervical lordosis. Normal vertebral bodies and posterior osseous elements. C2-3: Normal endplates. Normal disc height, signal and morphology. Normal central canal and intervertebral neural foramina. C3-4: Normal endplates. Normal disc height, signal and morphology. Normal central canal and intervertebral neural foramina. C4-5: Normal endplates. Normal disc height, signal and morphology. Normal central canal and intervertebral neural foramina. C5-6: Small broad-based posterior disc marginal osteophyte and uncinate spondylosis causing narrowing of the neural foramina, right greater than left. C6-7: Normal endplates. Normal disc height, signal and morphology. Normal central canal and intervertebral neural foramina. C7-T1: Normal endplates. Normal disc height, signal and morphology. Normal central canal and intervertebral neural foramina. Normal cervical cord. Normal visualized soft tissue structures. IMPRESSION: C5-6 neural foraminal narrowing, right greater than left due to uncinate spondylosis. Electronically Signed: José Luis Verdin MD at 17:02 EDT , Service support , MRI/Spine Cervical (Routine)
--- NOTE | 2018-10-20 13:57 | CON.PCM_ITS ---
Problem List (1) Fall Status: Acute Reason for Consult Date of Consultation: 10/20/18 Reason for Consultation: Falls History of Present Illness: The patient is a 73 year old F with PMH HTN, HLD, DM, CAD admitted following a fall. Patient is a retired psychiatrist. Patient she had a fall on May 19, 2018 while she was trying to cross her road and she fell on her hips and hurt the right hip, the second fall was on June 04 2018 and at the time per patient she was trying to get on the prior pavement and she found herself down on the road, and the last fall was on 19 Oct 2018, per documentation she tripped and fell and had a right fifth finger fracture, prior to these falls patient denies any lightheadedness, dizziness, diaphoresis, denies any witnessed seizures. Per patient she is aware of the fall and denies any loss of consciousness. Per patient she had a fall about 20 years ago when she was trying to get into her office when she all of a sudden fell down and hit her chin. Denies any loss of consciousness then. She denies any tongue bite, postictal confusion with these episodes. She denies any neck pain, denies any low back pain, denies any radicular symptoms, denies any burning pain or paresthesias in the feet or fingers. She denies any persistent urinary incontinence or memory loss. She lives with her , does not use any cane or walker to ambulate, denies any falls apart from the 3 falls, does drive and does not need any help with her ADLs. [] Past Medical History Past Medical History (Chronic Problems): Chronic Problems (Last Updated 10/19/18 @ 11:29 by Sheila Marcano) DM type 2 (diabetes mellitus, type 2) (Chronic) HTN (hypertension) (Chronic) CAD (coronary artery disease) (Chronic) Chronic iron deficiency anemia (Chronic) Medical History: Medical History (Last Updated 10/19/18 @ 11:29 by Sheila Marcano) Anemia D64.9 Diabetes E11.9 Difficulty balancing R29.818 GERD (gastroesophageal reflux disease) K21.9 Hay fever J30.1 Heart disease I51.9 SOB (shortness of breath) R06.02 Thyroid disease E07.9 HTN (hypertension) I10 Allergies Penicillins Allergy (Verified 10/19/18 13:06) Unknown Sulfa (Sulfonamide Antibiotics) Allergy (Verified 10/19/18 13:06) Unknown Home Medications: Ambulatory Orders Medication Instructions Recorded Lisinopril [Zestril] 2.5 mg PO DAILY 06/04/18 Metformin(XR) [Glucophage Xr] 1,000 mg PO BID 06/04/18 Atorvastatin Calcium [Lipitor] 10 mg PO DAILY 10/19/18 Ezetimibe [Zetia] 10 mg PO DAILY 10/19/18 levothyroxine 75 mcg tablet 75 mcg PO DAILY 10/19/18 metoprolol succinate ER 25 mg 25 mg PO DAILY 90 Days #90 tab 10/19/18 tablet,extended release 24 hr Lives: Spouse/ Significant Other Smoking Status: Never smoker Tobacco Use: Non-smoker Alcohol: None Drugs: None - *Family History Maternal Family History: Family History (Last Updated 10/19/18 @ 11:30 by Sheila Marcano) Other CAD (coronary artery disease) GERD (gastroesophageal reflux disease) Hypertension History Items: Heart Disease - Coronary artery disease with stent Review of Systems Constitutional: Reports: - - Complete ROS negative except as documented in HPI Patient Problems: Active and Suspected Problems (Last Updated 10/19/18 @ 11:29 by Sheila Marcano) Fall (Acute) - Physical Exam General: Alert HEENT: Normocephalic Neck: Supple Lungs: Normal air movement Cardiovascular: Normal S1, Normal S2 Abdomen: Bowel Sounds Present Extremities: No cyanosis Neurological: Cranial nerves II-XII grossly intact, Deep Tendon Reflexes 2+/4 and Symmetrical, Neuro grossly intact, Motor Exam 5/5 strength throughout, Muscle tone normal, Sensory exam intact to light touch and pain, Coordination normal Psych/Mental Status: Normal Affect Vital Signs Temp Pulse Resp BP Pulse Ox 97.7 F L 76 16 134/72 H 100 10/20/18 08:00 10/20/18 13:50 10/20/18 08:00 10/20/18 13:50 10/20/18 08:00 Oxygen Delivery Method Room Air Weight: 43.137 kg Body Mass Index (BMI) 17.9 Orthostatic Vital Signs Start: 10/19/18 20:20 Freq: q24h Status: Active Protocol: Activity Type Activity Date Activity User E-Sign Co-Sign Detail Recorded Client Recorded Date Recorded By Document 10/19/18 20:00 [id number] 10/19/18 20:21 10/19/18 20:00 Orthostatic Vitals Standing -Blood Pressure (90/60-120/80) 105/66 -Extremity Use Left Arm -Pulse Rate (60-100) 83 Sitting -Blood Pressure (90/60-120/80) 114/71 -Extremity Use Left Arm -Pulse Rate (60-100) 75 Lying -Blood Pressure (90/60-120/80) 111/63 -Extremity Use Left Arm -Pulse Rate (60-100) 76 Intake and Output for Last 24 Hours 10/18/18 10/19/18 10/20/18 23:59 23:59 23:59 Intake Total 1361 / 1361 Balance 1361 / 1361 Laboratory Tests Past 24 Hrs 10/19/18 10/19/18 10/19/18 13:49 13:49 17:15 WBC 8.0 RBC 3.84 L Hgb 11.5 L Hct 33.4 L MCV 87.0 MCH 29.9 MCHC 34.4 RDW 13.6 RDW Differential 43.8 Plt Count 276 MPV 8.8 Immature Gran % (Auto) 0.000 Neut % (Auto) 65.1 Lymph % (Auto) 25.2 Carter % (Auto) 8.9 Eos % (Auto) 0.5 Baso % (Auto) 0.3 Absolute Neuts (auto) 5.2 Absolute Lymphs (auto) 2.01 Total Counted Not Reportable PT INR APTT Sodium 134 L Potassium 3.8 Chloride 103 Carbon Dioxide 27.0 Anion Gap 4 L BUN 10 Creatinine 0.56 Estim Creat Clear Calc 35.08 Est GFR (MDRD) Af Amer 137 Est GFR (MDRD) Non-Af 113 BUN/Creatinine Ratio 17.9 Glucose 94 Calcium 8.9 Phosphorus Magnesium Troponin I 0.088 H 0.111 H Triglycerides Cholesterol LDL Cholesterol VLDL Cholesterol HDL Cholesterol TSH Free T4 10/19/18 10/19/18 10/19/18 17:15 17:15 20:50 WBC RBC Hgb Hct MCV MCH MCHC RDW RDW Differential Plt Count MPV Immature Gran % (Auto) Neut % (Auto) Lymph % (Auto) Carter % (Auto) Eos % (Auto) Baso % (Auto) Absolute Neuts (auto) Absolute Lymphs (auto) Total Counted PT INR APTT Sodium Potassium Chloride Carbon Dioxide Anion Gap BUN Creatinine Estim Creat Clear Calc Est GFR (MDRD) Af Amer Est GFR (MDRD) Non-Af BUN/Creatinine Ratio Glucose Calcium Phosphorus Magnesium Cancelled 1.7 Troponin I 0.093 H Triglycerides Cholesterol LDL Cholesterol VLDL Cholesterol HDL Cholesterol TSH Free T4 10/20/18 10/20/18 10/20/18 06:22 06:22 06:22 WBC 6.2 RBC 3.85 L Hgb 11.4 L Hct 33.5 L MCV 87.0 MCH 29.6 MCHC 34.0 RDW 13.4 RDW Differential 41.4 Plt Count 277 MPV 9.2 Immature Gran % (Auto) Neut % (Auto) Lymph % (Auto) Carter % (Auto) Eos % (Auto) Baso % (Auto) Absolute Neuts (auto) Absolute Lymphs (auto) Total Counted PT 13.2 INR 1.0 APTT 36.6 H Sodium 140 Potassium 3.9 Chloride 109 H Carbon Dioxide 24.0 Anion Gap 7 BUN 13 Creatinine 0.47 L Estim Creat Clear Calc 34.63 Est GFR (MDRD) Af Amer 167 Est GFR (MDRD) Non-Af 138 BUN/Creatinine Ratio 27.7 H Glucose 88 Calcium 8.4 L Phosphorus 4.3 Magnesium Troponin I Triglycerides 60 Cholesterol 139 LDL Cholesterol 36 VLDL Cholesterol 12 HDL Cholesterol 91 TSH 0.31 L Free T4 1.35 POC Glucose 10/20/18 10/20/18 10/19/18 13:34 06:21 22:31 POC Glucose 78 87 98 10/19/18 19:24 POC Glucose 92 Assessment/Plan All Active Problems (Last Updated 10/19/18 @ 11:29 by Sheila Marcano) Fall (Acute) Closed fracture of proximal phalanx of right hand (Acute) Contusion of left hand (Acute) Contusion of face (Acute) PAC (premature atrial contraction) (Acute) The patient is a 73 year old F with PMH HTN, HLD, DM, CAD admitted following a fall. Patient is a retired psychiatrist. Patient she had a fall on May 19, 2018 while she was trying to cross her road and she fell on her hips and hurt the right hip, the second fall was on June 04 2018 and at the time per patient she was trying to get on the prior pavement and she found herself down on the road, and the last fall was on 19 Oct 2018, per documentation she tripped and fell and had a right fifth finger fracture, prior to these falls patient denies any lightheadedness, dizziness, diaphoresis, denies any witnessed seizures. Per patient she is aware of the fall and denies any loss of consciousness. Per patient she had a fall about 20 years ago when she was trying to get into her office when she all of a sudden fell down and hit her chin. Denies any loss of consciousness then. She denies any tongue bite, postictal confusion with these episodes. She denies any neck pain, denies any low back pain, denies any radicular symptoms, denies any burning pain or paresthesias in the feet or fingers. She denies any persistent urinary incontinence or memory loss. She lives with her , does not use any cane or walker to ambulate, denies any falls apart from the 3 falls, does drive and does not need any help with her ADLs.[] Impression Falls-? Cause Plan ?Await MRI brain results ?MRI C-spine and MRI L-spine without contrast ?PT/OT ?Fall precautions ?GI/DVT prophylaxis ?May check EMG/NCS of both lower extremities as outpatient ?Follow-up with neurology as outpatient in 6 weeks ?Please call with questions if any ?Thank you for allowing us to participate in patient's care and management Code Visit Inpatient E&M: [id number] Init Hosp L3
--- NOTE | 2018-10-20 14:32 | PCM.DC ---
- Discharge Diagnoses Current Active Problems: Current Active and Chronic Problems (Last Updated 10/19/18 @ 11:29 by Sheila Marcano) DM type 2 (diabetes mellitus, type 2) (Chronic) HTN (hypertension) (Chronic) CAD (coronary artery disease) (Chronic) Chronic iron deficiency anemia (Chronic) Fall (Acute) You will use the following diet at home:: Cardiac - Carb control Discharge Activity: Return to Normal Activity Call your doctor if you observe: Shortness of breath, Dizziness, Fainting spells, Chest pain Allergies/Adverse Reactions: Allergies Penicillins Allergy (Verified 10/19/18 13:06) Unknown Sulfa (Sulfonamide Antibiotics) Allergy (Verified 10/19/18 13:06) Unknown Medications to take at Discharge Lisinopril [Zestril] 2.5 mg PO DAILY 06/04/18 Metformin(XR) [Glucophage Xr] 1,000 mg PO BID 06/04/18 Atorvastatin Calcium [Lipitor] 10 mg PO DAILY 10/19/18 Ezetimibe [Zetia] 10 mg PO DAILY 10/19/18 levothyroxine 75 mcg tablet 75 mcg PO DAILY 10/19/18 Metoprolol Tartrate [Lopressor (beta shashank)] 12.5 mg PO BID tablet 10/20/18 Orders to be completed after discharge: 30-Day Event Recorder [[facility]] Location: None Selected Primary Care Physician: [facility] Doctor,Out of [Primary Care Provider] - Please follow up with your Primary Care Physician in: 1 Week, establish with local PCP Test Results: Test results from this visit will be discussed in further detail at your follow-up appointment, if applicable. Please Follow Up With: Darío Man MD When: 4-6 Weeks following completion of 30 day event monitor Please Follow Up With: Gabriele Kumar MD When: 6 Weeks Please Follow Up With: Eliecer Baxter DO When: 1 Week Proposed Discharge Date: 10/20/18
--- NOTE | 2018-10-20 14:37 | PCM.DC.SUM ---
Discharge Date and Diagnosis Date of Admission: 10/19/18 Date of Discharge: 10/20/18 - Primary Discharge Diagnosis Active and Suspected Problems (Last Updated 10/19/18 @ 11:29 by Sheila Marcano) 1. Recurrent falls with unclear etiology 2. PACs 3. Right fifth finger proximal shaft corrected fracture 4. CAD with elevated troponins, ACS ruled out 5. Type 2 diabetes mellitus 6. Hypertension 7. Hyperlipidemia 8. Hypothyroidism 9. Mild chronic iron deficiency anemia - Secondary Discharge Diagnosis Chronic Problems (Last Updated 10/19/18 @ 11:29 by Sheila Marcano) DM type 2 (diabetes mellitus, type 2) (Chronic) HTN (hypertension) (Chronic) CAD (coronary artery disease) (Chronic) Chronic iron deficiency anemia (Chronic) Hospital Course and Treatment Imaging Results: Diagnostic Data Chest X-Ray 10/19/18 15:20 IMPRESSION: Hyperinflation. The lungs are clear. Electronically Signed: Srinivasa Reddy, at 15:39 EDT , Service support , Finger X-Ray 10/19/18 16:30 IMPRESSION: Comminuted fracture of the base/proximal shaft of the fifth proximal phalanx, appearing fairly similar in alignment to the prereduction images. Electronically Signed: Augustus Rosa MD at 16:45 EDT , Service support , Lumbar Spine CT 10/19/18 19:36 IMPRESSION: There are NO fractures or malalignments. There are degenerative disc and facet changes causing spinal and foraminal stenosis as described at L4-L5. Electronically Signed: Milo Hdez MD at 5:04 EDT , Service support , Dr. Kumar- Neurology Dr. Man- Cardiology Operations: None Procedures: 2-D Echocardiogram, Stress test Summary of Care Provided: The patient is a 73 year old F admitted 10/19/2018 due to recurrent falls. 1. Recurrent falls with unclear etiology-cardiology and neurology consulted during admission. 30 day event monitor at discharge. Orthostatic vitals negative. Echocardiogram with EF 65%, stage I diastolic dysfunction. Stress echo negative for ischemia. MRI of brain, MRA of head and neck unremarkable per neurology. Report pending. Cervical and lumbar spine MRI pending and will be reviewed prior to discharge. 2. PACs, infrequent and [id number] event monitor at discharge. 3. Right fifth finger proximal shaft corrected fracture- ortho consulted during admission. Outpatient follow-up, patient may need reduction and fixation in future. Follow up with Dr. Baxter in 1 week. 4. CAD with elevated troponins, ACS ruled out-troponin did not trend. Stress echo with EF 65%, no evidence of ischemia. Echocardiogram with EF 65%, stage I diastolic dysfunction, RVSP estimated be 33 mmHg. 5. Type 2 diabetes mellitus-continue home metformin regimen. 6. Hypertension-stable, continue lisinopril, metoprolol regimen. Metoprolol regimen decreased to 12.5 mg p.o. twice daily. 7. Hyperlipidemia-continue statin, Zetia. 8. Hypothyroidism-continue levothyroxine regimen. TSH low however free T4 normal. Recommend repeat in 4 to 6 weeks by primary care provider. 9. Mild chronic iron deficiency anemia- stable. General: Alert, Oriented x3, Cooperative HEENT: Atraumatic, PERRLA, EOMI, Normocephalic Neck: Supple, No JVD, Negative Carotid Bruits Lungs: Clear to auscultation, Normal air movement, No rhonchi, No wheeze, No rales Cardiovascular: Regular rate, Normal S1, Normal S2, No murmurs, Irregular Rate Abdomen: Bowel Sounds Present, Soft, Non Tender, Non-Distended Extremities: No edema, Capillary Refill Less than 3 Seconds Skin: No rashes, No breakdown Musculoskeletal: No Tenderness to Palpation of Joints or Extremities, right fifth digit in splint Neurological: Cranial nerves II-XII grossly intact Psych/Mental Status: Normal Affect, Appropriate Patient seen and examined prior to discharge. Physical assessment as noted above. Patient is stable for discharge with follow up recommendations as noted above. This patient was seen by RENA Marroquin under the supervision of Dr. Corea. - Physical Exam Vital Signs Temp Pulse Resp BP Pulse Ox 98.2 F 74 15 131/71 H 99 10/20/18 14:00 10/20/18 14:00 10/20/18 14:00 10/20/18 14:00 10/20/18 14:00 Oxygen Delivery Method Room Air Weight: 95 lb 1.6 oz Body Mass Index (BMI) 17.9 Orthostatic Vital Signs Start: 10/19/18 20:20 Freq: q24h Status: Active Protocol: Activity Type Activity Date Activity User E-Sign Co-Sign Detail Recorded Client Recorded Date Recorded By Document 10/19/18 20:00 [email or web address] [id number] 10/19/18 20:21 [email or web address] 10/19/18 20:00 Orthostatic Vitals Standing -Blood Pressure (90/60-120/80) 105/66 -Extremity Use Left Arm -Pulse Rate (60-100) 83 Sitting -Blood Pressure (90/60-120/80) 114/71 -Extremity Use Left Arm -Pulse Rate (60-100) 75 Lying -Blood Pressure (90/60-120/80) 111/63 -Extremity Use Left Arm -Pulse Rate (60-100) 76 Intake and Output for Last 24 Hours 10/18/18 10/19/18 10/20/18 23:59 23:59 23:59 Intake Total 1361 / 1361 Balance 1361 / 1361 Laboratory Tests Past 24 Hrs 10/19/18 10/19/18 10/19/18 17:15 17:15 17:15 WBC RBC Hgb Hct MCV MCH MCHC RDW RDW Differential Plt Count MPV PT INR APTT Sodium Potassium Chloride Carbon Dioxide Anion Gap BUN Creatinine Estim Creat Clear Calc Est GFR (MDRD) Af Amer Est GFR (MDRD) Non-Af BUN/Creatinine Ratio Glucose Calcium Phosphorus Magnesium Cancelled 1.7 Troponin I 0.111 H Triglycerides Cholesterol LDL Cholesterol VLDL Cholesterol HDL Cholesterol TSH Free T4 10/19/18 10/20/18 10/20/18 20:50 06:22 06:22 WBC 6.2 RBC 3.85 L Hgb 11.4 L Hct 33.5 L MCV 87.0 MCH 29.6 MCHC 34.0 RDW 13.4 RDW Differential 41.4 Plt Count 277 MPV 9.2 PT INR APTT Sodium 140 Potassium 3.9 Chloride 109 H Carbon Dioxide 24.0 Anion Gap 7 BUN 13 Creatinine 0.47 L Estim Creat Clear Calc 34.63 Est GFR (MDRD) Af Amer 167 Est GFR (MDRD) Non-Af 138 BUN/Creatinine Ratio 27.7 H Glucose 88 Calcium 8.4 L Phosphorus 4.3 Magnesium Troponin I 0.093 H Triglycerides 60 Cholesterol 139 LDL Cholesterol 36 VLDL Cholesterol 12 HDL Cholesterol 91 TSH 0.31 L Free T4 1.35 10/20/18 06:22 WBC RBC Hgb Hct MCV MCH MCHC RDW RDW Differential Plt Count MPV PT 13.2 INR 1.0 APTT 36.6 H Sodium Potassium Chloride Carbon Dioxide Anion Gap BUN Creatinine Estim Creat Clear Calc Est GFR (MDRD) Af Amer Est GFR (MDRD) Non-Af BUN/Creatinine Ratio Glucose Calcium Phosphorus Magnesium Troponin I Triglycerides Cholesterol LDL Cholesterol VLDL Cholesterol HDL Cholesterol TSH Free T4 POC Glucose 10/20/18 10/20/18 10/19/18 13:34 06:21 22:31 POC Glucose 78 87 98 10/19/18 19:24 POC Glucose 92 Discharge Diet: Low fat/ Low Cholesterol, Carb Control Diet Discharge Activity: Return to Normal Activity Call your doctor if you observe: Shortness of breath, Dizziness, Fainting spells, Chest pain Home Medications: Medications to take at Discharge Lisinopril [Zestril] 2.5 mg PO DAILY 06/04/18 Metformin(XR) [Glucophage Xr] 1,000 mg PO BID 06/04/18 Atorvastatin Calcium [Lipitor] 10 mg PO DAILY 10/19/18 Ezetimibe [Zetia] 10 mg PO DAILY 10/19/18 levothyroxine 75 mcg tablet 75 mcg PO DAILY 10/19/18 Metoprolol Tartrate [Lopressor (beta shashank)] 12.5 mg PO BID tablet 10/20/18 Other Amb Orders: 30-Day Event Recorder [[facility]] Location: None Selected Primary Care Physician: [facility] Doctor,Out of [Primary Care Provider] - Please follow up with your Primary Care Physician in: 1 Week, establish with local PCP Please Follow Up With: Darío Man MD When: 4-6 Weeks following completion of 30 day event monitor Please Follow Up With: Gabriele Kumar MD When: 6 Weeks Please Follow Up With: Eliecer Baxter DO When: 1 Week Disposition: Home Minutes spent on discharge:: 35 Patient Condition:: Stable Medical Necessity - Tobacco Use Smoking Status: Never smoker Tobacco Use: Non-smoker Meaningful Use Info Meaningful Use Diagnoses (Choose all that apply): None applicable
--- NOTE | 2018-10-20 14:41 | DS.PCM_ITS ---
Discharge Date and Diagnosis Date of Admission: 10/19/18 Date of Discharge: 10/20/18 - Primary Discharge Diagnosis Active and Suspected Problems (Last Updated 10/19/18 @ 11:29 by Sheila Marcano) 1. Recurrent falls with unclear etiology 2. PACs 3. Right fifth finger proximal shaft corrected fracture 4. CAD with elevated troponins, ACS ruled out 5. Type 2 diabetes mellitus 6. Hypertension 7. Hyperlipidemia 8. Hypothyroidism 9. Mild chronic iron deficiency anemia - Secondary Discharge Diagnosis Chronic Problems (Last Updated 10/19/18 @ 11:29 by Sheila Marcano) DM type 2 (diabetes mellitus, type 2) (Chronic) HTN (hypertension) (Chronic) CAD (coronary artery disease) (Chronic) Chronic iron deficiency anemia (Chronic) Hospital Course and Treatment Imaging Results: Diagnostic Data Chest X-Ray 10/19/18 15:20 IMPRESSION: Hyperinflation. The lungs are clear. Electronically Signed: Srinivasa Reddy, at 15:39 EDT , Service support , Finger X-Ray 10/19/18 16:30 IMPRESSION: Comminuted fracture of the base/proximal shaft of the fifth proximal phalanx, appearing fairly similar in alignment to the prereduction images. Electronically Signed: Augustus Rosa MD at 16:45 EDT , Service support , Lumbar Spine CT 10/19/18 19:36 IMPRESSION: There are NO fractures or malalignments. There are degenerative disc and facet changes causing spinal and foraminal stenosis as described at L4-L5. Electronically Signed: Milo Hdez MD at 5:04 EDT , Service support , Dr. Kumar- Neurology Dr. Man- Cardiology Operations: None Procedures: 2-D Echocardiogram, Stress test Summary of Care Provided: The patient is a 73 year old F admitted 10/19/2018 due to recurrent falls. 1. Recurrent falls with unclear etiology-cardiology and neurology consulted during admission. 30 day event monitor at discharge. Orthostatic vitals negative. Echocardiogram with EF 65%, stage I diastolic dysfunction. Stress echo negative for ischemia. MRI of brain, MRA of head and neck unremarkable per neurology. Report pending. Cervical and lumbar spine MRI pending and will be reviewed prior to discharge. 2. PACs, infrequent and [id number] event monitor at discharge. 3. Right fifth finger proximal shaft corrected fracture- ortho consulted during admission. Outpatient follow-up, patient may need reduction and fixation in future. Follow up with Dr. Baxter in 1 week. 4. CAD with elevated troponins, ACS ruled out-troponin did not trend. Stress echo with EF 65%, no evidence of ischemia. Echocardiogram with EF 65%, stage I diastolic dysfunction, RVSP estimated be 33 mmHg. 5. Type 2 diabetes mellitus-continue home metformin regimen. 6. Hypertension-stable, continue lisinopril, metoprolol regimen. Metoprolol regimen decreased to 12.5 mg p.o. twice daily. 7. Hyperlipidemia-continue statin, Zetia. 8. Hypothyroidism-continue levothyroxine regimen. TSH low however free T4 normal. Recommend repeat in 4 to 6 weeks by primary care provider. 9. Mild chronic iron deficiency anemia- stable. General: Alert, Oriented x3, Cooperative HEENT: Atraumatic, PERRLA, EOMI, Normocephalic Neck: Supple, No JVD, Negative Carotid Bruits Lungs: Clear to auscultation, Normal air movement, No rhonchi, No wheeze, No rales Cardiovascular: Regular rate, Normal S1, Normal S2, No murmurs, Irregular Rate Abdomen: Bowel Sounds Present, Soft, Non Tender, Non-Distended Extremities: No edema, Capillary Refill Less than 3 Seconds Skin: No rashes, No breakdown Musculoskeletal: No Tenderness to Palpation of Joints or Extremities, right fifth digit in splint Neurological: Cranial nerves II-XII grossly intact Psych/Mental Status: Normal Affect, Appropriate Patient seen and examined prior to discharge. Physical assessment as noted above. Patient is stable for discharge with follow up recommendations as noted above. This patient was seen by RENA Marroquin under the supervision of Dr. Corea. - Physical Exam Vital Signs Temp Pulse Resp BP Pulse Ox 98.2 F 74 15 131/71 H 99 10/20/18 14:00 10/20/18 14:00 10/20/18 14:00 10/20/18 14:00 10/20/18 14:00 Oxygen Delivery Method Room Air Weight: 95 lb 1.6 oz Body Mass Index (BMI) 17.9 Orthostatic Vital Signs Start: 10/19/18 20:20 Freq: q24h Status: Active Protocol: Activity Type Activity Date Activity User E-Sign Co-Sign Detail Recorded Client Recorded Date Recorded By Document 10/19/18 20:00 ZACHARIAH [id number] 10/19/18 20:21 ZACHARIAH 10/19/18 20:00 Orthostatic Vitals Standing -Blood Pressure (90/60-120/80) 105/66 -Extremity Use Left Arm -Pulse Rate (60-100) 83 Sitting -Blood Pressure (90/60-120/80) 114/71 -Extremity Use Left Arm -Pulse Rate (60-100) 75 Lying -Blood Pressure (90/60-120/80) 111/63 -Extremity Use Left Arm -Pulse Rate (60-100) 76 Intake and Output for Last 24 Hours 10/18/18 10/19/18 10/20/18 23:59 23:59 23:59 Intake Total 1361 / 1361 Balance 1361 / 1361 Laboratory Tests Past 24 Hrs 10/19/18 10/19/18 10/19/18 17:15 17:15 17:15 WBC RBC Hgb Hct MCV MCH MCHC RDW RDW Differential Plt Count MPV PT INR APTT Sodium Potassium Chloride Carbon Dioxide Anion Gap BUN Creatinine Estim Creat Clear Calc Est GFR (MDRD) Af Amer Est GFR (MDRD) Non-Af BUN/Creatinine Ratio Glucose Calcium Phosphorus Magnesium Cancelled 1.7 Troponin I 0.111 H Triglycerides Cholesterol LDL Cholesterol VLDL Cholesterol HDL Cholesterol TSH Free T4 10/19/18 10/20/18 10/20/18 20:50 06:22 06:22 WBC 6.2 RBC 3.85 L Hgb 11.4 L Hct 33.5 L MCV 87.0 MCH 29.6 MCHC 34.0 RDW 13.4 RDW Differential 41.4 Plt Count 277 MPV 9.2 PT INR APTT Sodium 140 Potassium 3.9 Chloride 109 H Carbon Dioxide 24.0 Anion Gap 7 BUN 13 Creatinine 0.47 L Estim Creat Clear Calc 34.63 Est GFR (MDRD) Af Amer 167 Est GFR (MDRD) Non-Af 138 BUN/Creatinine Ratio 27.7 H Glucose 88 Calcium 8.4 L Phosphorus 4.3 Magnesium Troponin I 0.093 H Triglycerides 60 Cholesterol 139 LDL Cholesterol 36 VLDL Cholesterol 12 HDL Cholesterol 91 TSH 0.31 L Free T4 1.35 10/20/18 06:22 WBC RBC Hgb Hct MCV MCH MCHC RDW RDW Differential Plt Count MPV PT 13.2 INR 1.0 APTT 36.6 H Sodium Potassium Chloride Carbon Dioxide Anion Gap BUN Creatinine Estim Creat Clear Calc Est GFR (MDRD) Af Amer Est GFR (MDRD) Non-Af BUN/Creatinine Ratio Glucose Calcium Phosphorus Magnesium Troponin I Triglycerides Cholesterol LDL Cholesterol VLDL Cholesterol HDL Cholesterol TSH Free T4 POC Glucose 10/20/18 10/20/18 10/19/18 13:34 06:21 22:31 POC Glucose 78 87 98 10/19/18 19:24 POC Glucose 92 Discharge Diet: Low fat/ Low Cholesterol, Carb Control Diet Discharge Activity: Return to Normal Activity Call your doctor if you observe: Shortness of breath, Dizziness, Fainting spells, Chest pain Home Medications: Medications to take at Discharge Lisinopril [Zestril] 2.5 mg PO DAILY 06/04/18 Metformin(XR) [Glucophage Xr] 1,000 mg PO BID 06/04/18 Atorvastatin Calcium [Lipitor] 10 mg PO DAILY 10/19/18 Ezetimibe [Zetia] 10 mg PO DAILY 10/19/18 levothyroxine 75 mcg tablet 75 mcg PO DAILY 10/19/18 Metoprolol Tartrate [Lopressor (beta shashank)] 12.5 mg PO BID tablet 10/20/18 Other Amb Orders: 30-Day Event Recorder [[facility]] Location: None Selected Primary Care Physician: [facility] Doctor,Out of [Primary Care Provider] - Please follow up with your Primary Care Physician in: 1 Week, establish with local PCP Please Follow Up With: Darío Man MD When: 4-6 Weeks following completion of 30 day event monitor Please Follow Up With: Gabriele Kumar MD When: 6 Weeks Please Follow Up With: Eliecer Baxter DO When: 1 Week Disposition: Home Minutes spent on discharge:: 35 Patient Condition:: Stable Medical Necessity - Tobacco Use Smoking Status: Never smoker Tobacco Use: Non-smoker Meaningful Use Info Meaningful Use Diagnoses (Choose all that apply): None applicable
== END 2018-10-20 17:57 | disposition home or self-care (01) | DRG 310 ==
LOC: ED 13:40 → PCU 18:56
PROVIDERS: Admitting Provider Internal Medicine; Emergency Provider Emergency Medicine; Visit Provider Family Medicine
DX: I49.1 Atrial premature depolarization (principal); S62.616A Displaced fracture of proximal phalanx of right little finger, initial encounter for closed fracture; W01.0XXA Fall on same level from slipping, tripping and stumbling without subsequent striking against object, initial encounter; I25.10 Atherosclerotic heart disease of native coronary artery without angina pectoris; I10 Essential (primary) hypertension; E11.9 Type 2 diabetes mellitus without complications; E78.5 Hyperlipidemia, unspecified; E03.9 Hypothyroidism, unspecified; D50.9 Iron deficiency anemia, unspecified; M47.892 Other spondylosis, cervical region; M48.061 Spinal stenosis, lumbar region without neurogenic claudication; M48.02 Spinal stenosis, cervical region; K21.9 Gastro-esophageal reflux disease without esophagitis; R79.89 Other specified abnormal findings of blood chemistry; R29.6 Repeated falls; Z79.84 Long term (current) use of oral hypoglycemic drugs; Z79.890 Hormone replacement therapy; Z79.899 Other long term (current) drug therapy
CPT/HCPCS: 36415; 70544; 70547; 70551; 71045; 72131; 72141; 72148; 73130; 73140; 80048; 80061; 82962; 83735; 84100; 84439; 84443; 84484; 85025; 85027; 85610; 85730; 93005; 93017; 93306; 93350; 97161; 97166; 99283; J7030; Q9957; A4216; C8928; C8929

== ENCOUNTER → 2019-01-30 07:48 | Outpatient (CLI) | payer MEDICARE, SELFPAY ==
[2018-11-28 14:23] VITALS: BMI 18.1
--- NOTE | 2019-01-31 09:54 | NEURO ---
NCS and/or EMG Patient Report Ordering Doctor: Mariana Jerez DATE OF SERVICE: 01/30/19 This is a bilateral lower extremity nerve conduction study and a right lower extremity EMG performed on this 73-year-old female with a history of for falls for unclear reasons since May 192017. She does have a history of diabetes but her hemoglobin A1c is only 5.7. She does note weakness in her right lower extremity. Bilateral lower extremity sensory and motor nerve conduction studies were performed. There is very mild slowing of the conduction velocities from the bilateral common peroneal and tibial motor nerves. Distal latencies and amplitudes are preserved. The sural sensory responses are preserved bilaterally and the tibial and common peroneal F-wave latencies are bilaterally preserved. H reflex latencies are preserved. Right lower extremity needle electromyography is performed. Muscles evaluated included the extensor digitorum brevis, abductor hallucis, medial gastrocnemius, anterior tibialis, vastus medialis and vastus lateralis muscles. All muscles demonstrated normal insertional activity with absence of pathologic spontaneous activity. Motor unit potential recruitment pattern and amplitude is normal in all muscles tested. Impression: There is very mild slowing of conduction velocities, this is consistent with mild peripheral neuropathy however this does not appear to reach the level of clinical significance. EMG testing is normal. Brief neurologic examination demonstrates normal sensation, and reflexes. Dictated using [employer] software not proofread
== END ==
PROVIDERS: Referring Provider Nurse Practitioner Family; Visit Provider Nurse Practitioner Family
DX: R20.0 Anesthesia of skin (principal); R20.2 Paresthesia of skin; R29.6 Repeated falls; R26.81 Unsteadiness on feet
CPT/HCPCS: 95886; 95910

== ENCOUNTER 2019-04-20 11:00 | Outpatient (RCR) | payer MEDICARE, SELFPAY ==
[2018-11-28 14:23] VITALS: BMI 18.1
--- NOTE | 2019-02-19 13:44 | HP.PTEVAL_ITS ---
Patient's Visit Information ARLENE DYE is a 73 year old F referred to Physical Therapy by RENA Doe with a diagnosis of Imbalance. Date of Evaluation: 02/19/19 Physical Therapist: Vasiliy Luis DPT - Visit Plan Frequency: 2x /Week Duration: 4-6 Weeks Plan: Start with neurocom balance testing. BLE strengthening throughout; Standing dynamic balance activities. - Subjective Findings: Pt. is here today for her initial evaluation with diagnosis of imbalance. Pt. has had 4 falls this year, 3 earlier this year, 1 ending with a 5th finger fx. Pt. reports not knowing how she is falling, but did report the last fall she caught her foot, tripping. Pt. has not been walking much due to her falls. Pt. is eager to get back to walking as well. Pt. has had a nerve conduction test, normal results. Normal readings with MRA and MRI. Pt. reports no back pain, but has had some previously. Pt. is concerned about her balance and is afraid she is going to have a bad fall resulting in fractures. pt. is hop eful to determine what is causing her to fall then prevent it. - Objective POSTURE: Pt. has slight FH posture, slight increased kyphosis. Pt. is able to correct both. She does also have increased sway back posture. PALPATION: Normal throughout bilateral LEs. NEURO: normal throughout, normal DTR bilaterally. ROM: Pt. has full lumbar/BLE ROM without increase in symptoms. Pt. does have HS/hip flexor tightness. MMT: RLE- ankle 4/5 throughout; knee- ext 4/5, flexion 4/5; hip- flexion 4/5, and 4-/5, ext 4-/5. LLE- ankle 4/5 throughout; knee- ext 4+/5, flexion 4/5; hip- flexion 4/5, adb 4/5, ext 4-/5. BALANCE: - Balance Scores Functional Gait Assessment Score: 19 % Disability: 36.6700 CATSIB Score (Max score 120 seconds): 59 - Goals Goal 1:: Pt. to be I with HEP. Goal Time Frame: 4-6 Weeks Goal 2:: Pt. to have neurocom balance assessment completed. Goal Time Frame: 4-6 Weeks Goal 3:: Pt. to have increased strength in BLEs by 1/2 grade throughout effected musculature. Goal Time Frame: 4-6 Weeks Goal 4:: Pt. to have increased FGA to 24/30 indicating reduced risk for future falls. Goal Time Frame: 4-6 Weeks Goal 5:: Pt. to negotiate steps with reciprocal pattern with increased control with use of 1 HR. Goal Time Frame: 4-6 Weeks - Rehabilitation Potential Physical Therapy Diagnosis: Pt. has signs and symptoms consistent with imbalance with gait. Pt. has signs of BLE weakness and some inconsistencies with her balance. She has greatest difficulties with eyes closed and narrow JOAQUINA. Pt. also presents with weakness in B ankles and hips. Pt. would benefit from PT to address above limitations progressing back to all walking with improved stability. Rehabilitation Potential: Good - Anticipated Interventions Patient/Client Instruction: Educate patient on: Condition, Plan of Care, Risk Factors, Benefits of Fitness Program For the Purpose of:: To foster healthy habits, To improve decision making, To facilitate caregiver knowledge, To improve self management, To prevent re- injury, To improve ability to perform tasks related to life management, To improve tolerance to ADL's Therapeutic Exercise to Include: Strength training, Power training, Endurance training, Balance training, Coordination, Postural training, Flexibilty training, Gait and locomotor training, via Neurocom Balance Mas, Dynamic Lumbar Stabilization For the Purpose of:: To increase ROM, To improve nutrient delivery to tissue, To increase oxygenation perfusion, To improve muscle performance and motor function, To improve ability to perform ADL's, To improve gait and locomotor functions, To improve health of tissue, To increase flexibility/ROM, To improve endurance, To improve balance, To improve safety with gait Thank you for the opportunity to evaluate your patient. For Medicare and Medicare HMO plans, please review the plan of care and approve it. It will need to be FAXED BACK to us at [phone] for Medicare purposes. For Medicare only, by signing this I certify the plan of care. Please let me know if there are questions or concerns regarding this plan of care. Physician Signature: Date:
--- NOTE | 2019-02-27 14:31 | HP.PTCOM_ITS ---
PT Communication Note 02/27/[address] Mariana Jerez, MAITRE D'-C , Thank you for the referral of Su to [facility] for balance assessment. I have enclosed a copy of the results for your review. In summation, she scored low on the vestibular portion of the Sensory Organization Test. She scored latent on the Motor Control Test. She scored nromal on the Limits of Stability Test. With these results in mind, I plan to add vestibular balance exercises to her current plan and progress to [place] as safety allows. Please do not hesi anglin to call if you have questions or concerns. Sincerely, Jr Bañuelos, DPT, OCS, CSCS Contact Information
--- NOTE | 2019-02-27 14:31 | HP.PTCOM ---
PT Communication Note 02/27/[address] Mariana Jerez, TWINE REELING MACHINE OPERATOR-C , Thank you for the referral of Su to [facility] for balance assessment. I have enclosed a copy of the results for your review. In summation, she scored low on the vestibular portion of the Sensory Organization Test. She scored latent on the Motor Control Test. She scored nromal on the Limits of Stability Test. With these results in mind, I plan to add vestibular balance exercises to her current plan and progress to [place] as safety allows. Please do not hesitate to call if you have questions or concerns. Sincerely, Jr Bañuelos, DPT, OCS, CSCS Contact Information
--- NOTE | 2019-04-20 14:25 | HP.PTREVAL_ITS ---
Mariana Jerez, JC-C, It has been my pleasure to treat ARLENE DYE over the last 13 visits for Imbalance. Please see the progress note below for an update on the physical therapy plan of care! Subjective: Pt. reports no issues. Pt. has had no falls since starting PT. Pt. reports being HEP compliant and reports being 95% better overall. She has been given an HEP for gym and rosie exercises. Objective/Function: Pt. tolerated all PT without adverse reaction. pt. has improved overall stability. Pt. has progressed very well with all strength, stability exercises. Plan Plan: Pt. to attempt PT on her own, but to follow up with PT in 2 weeks if needed. The patient and my self do not think this will be neccesary, but I will leave open just in case. Goals Goal 1:: Pt. to be I with HEP. Goal Time Frame: 4-6 Weeks Goal Progress: Goal Met Goal 2:: Pt. to have neurocom balance assessment completed. Goal Time Frame: 4-6 Weeks Goal Progress: Goal Met Goal 3:: Pt. to have increased strength in BLEs by 1/2 grade throughout effected musculature. Goal Time Frame: 4-6 Weeks Goal Progress: Goal Met Goal 4:: Pt. to have increased FGA to 24/30 indicating reduced risk for future falls. Goal Time Frame: 4-6 Weeks Goal Progress: Goal Met Goal 5:: Pt. to negotiate steps with reciprocal pattern with increased control with use of 1 HR. Goal Time Frame: 4-6 Weeks Goal Progress: Goal Met Anticipated Interventions Patient/Client Instruction: Educate patient on: Condition, Plan of Care, Risk Factors, Benefits of Fitness Program For the Purpose of:: To foster healthy habits, To improve decision making, To facilitate caregiver knowledge, To improve self management, To prevent re- injury, To improve ability to perform tasks related to life management, To improve tolerance to ADL's Therapeutic Exercise to Include: Strength training, Power training, Endurance training, Balance training, Coordination, Postural training, Flexibilty training, Gait and locomotor training, via Neurocom Balance Mas, Dynamic Lumbar Stabilization For the Purpose of:: To increase ROM, To improve nutrient delivery to tissue, To increase oxygenation perfusion, To improve muscle performance and motor function, To improve ability to perform ADL's, To improve gait and locomotor functions, To improve health of tissue, To increase flexibility/ROM, To improve endurance, To improve balance, To improve safety with gait Please do not hesitate to contact me at [phone] by phone or if you have questions or concerns regarding this new plan of care! Sincerely, TOBY YoungT
== END 2019-04-20 17:00 | disposition home or self-care (01) ==
LOC: PT 11:00
PROVIDERS: Referring Provider Nurse Practitioner Family; Visit Provider Nurse Practitioner Family
DX: R26.89 Other abnormalities of gait and mobility (principal)
CPT/HCPCS: 97110; 97161; 97750